=== PATIENT | female | born 1940 | race Two or more races ===

== ENCOUNTER → 2019-09-19 | Outpatient (CLI) | payer OTHER | END | disposition home or self-care (01) | LOC: TOM 07:15 | DX: K56.690 Other partial intestinal obstruction (principal); K56.50 Intestinal adhesions [bands], unspecified as to partial versus complete obstruction; K56.609 Unspecified intestinal obstruction, unspecified as to partial versus complete obstruction ==

== ENCOUNTER 2023-02-18 03:45 | Emergency (ER) | payer OTHER ==
[~2023-02-18] VITALS: Ht 154.9 cm; Wt 72.6 kg
[2023-02-18] MEDS ORDERED: CLONAZEPAM1 MG PO (04:03)
[2023-02-18] MEDS ORDERED: GABAPENTIN400 MG PO (04:03)
[2023-02-18] MEDS ORDERED: LOSARTAN POTAS100 MG PO (04:03)
[2023-02-18] MEDS ORDERED: NIFEDIPINE ER30 M1 PO (04:04)
[2023-02-18] MEDS ORDERED: SIMVASTATIN20 MG PO (04:04)
[2023-02-18] MEDS ORDERED: SYNTHROID175 MCG PO (04:04)
[2023-02-18] MEDS ORDERED: TRAMADOL HCL50 MG PO (04:04)
[2023-02-18] MEDS ORDERED: ZITHROMAX500 MG PO (07:26)
[2023-02-18] MEDS ORDERED: ZYNCOF 20-400120 ML PO (07:26)
[2023-02-18] MEDS ORDERED: ALBUTEROL2.5 MG/3 M IH (07:26)
== END 2023-02-18 07:35 ==
LOC: ER 03:45
DX: R06.02 Shortness of breath (principal); E11.9 Type 2 diabetes mellitus without complications; E03.9 Hypothyroidism, unspecified; I10 Essential (primary) hypertension; Z20.822 Contact with and (suspected) exposure to COVID-19

== ENCOUNTER 2024-07-27 17:29 | Emergency (ER) | payer OTHER ==
[~2024-07-27] VITALS: Ht 157.5 cm; Wt 74.8 kg
[~2024-07-27 17:29] MED LIST: ALBUTEROL2.5 MG/3 M IH; CLONAZEPAM1 MG PO; GABAPENTIN400 MG PO; LOSARTAN POTAS100 MG PO; NIFEDIPINE ER30 M1 PO; SIMVASTATIN20 MG PO; SYNTHROID175 MCG PO; TRAMADOL HCL50 MG PO; ZITHROMAX500 MG PO; ZYNCOF 20-400120 ML PO
[2024-07-27] MEDS ORDERED: FAMOTIDINE/PF 20 MG/2 ML VIAL IV ONE (19:00)
[2024-07-27] MEDS ORDERED: 0.9 % SODIUM CHLORIDE 500 ML IV ONE (19:15)
[2024-07-27 19:24] LABS: HEMATOCRIT 37.8 % (36.0-45.00); HEMOGLOBIN 12.7 g/dL (12.0-15.00); MEAN CELL VOLUME 77.6 fL (80.00-100.00); MEAN CORPUSCULAR HEMOGLOBIN 26.1 pg (27.00-32.0); MEAN CORPUSCULAR HGB CONC 33.6 g/dl (32.0-36.0); PLATELET COUNT 352 K/uL (150-450); RED BLOOD COUNT 4.87 M/uL (4.00-6.00); RED CELL DISTRIBUTION WIDTH 15.2 % (11.5-14.5)
[2024-07-27 20:09] LABS: ALBUMIN 3.8 gm/dL (3.4-5.0); BILIRUBIN TOTAL 1.21 mg/dL (0.3-1.2); CALCIUM 6.7 mg/dL (8.5-10.1); CREATININE SERUM 1.11 mg/dL (0.55-1.02); GFR 46.72; GLOBULINA 3.4 G/DL (2.4-3.5); POTASSIUM 3.41 mEq/L (3.5-5.1); TOTAL PROTEIN 7.2 gm/dL (6.4-8.2)
[2024-07-27 20:32] LABS: PH,URINE 5.5 (5.0-8.0); URINE APPEARANCE Clear; URINE BILIRRUBIN Negative (NEGATIVE); URINE BLOOD Negative; URINE COLOR Yellow; URINE GLUCOSE Negative (NEGATIVE); URINE KETONE Trace (NEGATIVE); URINE LEUKOCYTE Negative; URINE NITRATE Negative
[2024-07-27 20:36] LABS: URINE BACTERIA 250.7 uL (0.0-1933); URINE RBC 2.4 uL (0.0-20.8); URINE WBC 18.6 uL (0.0-23.2)
[2024-07-27 21:07] LABS: URINE PROTEIN 100 (NEGATIVE)
[2024-07-27 21:08] LABS: URINE CAST 1.06 uL (0.0-1.40); URINE MUCUS MODERATE
[2024-07-27] MEDS ORDERED: PEPCID AC20 MG PO (21:36)
== END 2024-07-27 21:44 | disposition home or self-care (01) ==
LOC: ER 17:31
PROVIDERS: Nurse Practitioner Family
DX: R10.13 Epigastric pain (principal); R10.9 Unspecified abdominal pain; I10 Essential (primary) hypertension; E03.8 Other specified hypothyroidism
CPT/HCPCS: 36415; 93005; 96365; 96366; 99282; J3490; J7042